=== PATIENT | male | born 1960 | race Caucasian/White ===

== ENCOUNTER 2019-09-02 09:27 | Outpatient (CLI) | payer BC ==
--- NOTE | 2019-09-02 09:44 | RAD ---
XR Chest Pa Lat STANDARD HISTORY: Dysphagia COMPARISON: 02/06/2009 FINDINGS: The heart size is normal. The lungs are well expanded without focal areas of consolidation, pneumothorax or pleural effusions. 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 There are degenerative changes in the spine. IMPRESSION: No radiographic evidence of acute cardiopulmonary process.
== END 2019-09-02 09:28 | disposition home or self-care (01) ==
LOC: RAD-FRANK 09:27
PROVIDERS: ATTEND Nurse Practitioner Family
DX: R13.10 Dysphagia, unspecified (principal)
CPT/HCPCS: 71046

== ENCOUNTER 2019-09-10 10:46 | Outpatient (CLI) | payer BC ==
[2019-09-10 11:17] LABS: Estimated GFR-MDRD - POC Greater than 90
--- NOTE | 2019-09-10 11:53 | CT ---
CT Chest W Con History: Dysphasia. Anorexia. Weakness. Fatigue. Comparison: Radiograph 2019 Findings: Calcified granuloma right upper lobe. Mild centrilobular emphysema. There are scattered 3 t o 4 mm pulmonary nodules. Lungs are hyperinflated. No pneumothorax. No effusion. No significant bronchiectasis. The aortic contour is nonaneurysmal. The ascending aorta measures up to 3.9 cm. No mediastinal adenopathy. Thyroid is unremarkable. Relatively acute-appearing right L2 transverse process fracture. Nondisplaced fracture anterior left seventh rib. No thoracic spine compression fracture. Sternum and manubrium are intact. Impression: 1. Mild pulmonary emphysema and scattered 3-4 mm pulmonary nodules. No follow-up is required per Flei kianna criteria. 2. No acute center process within the chest. 3. Mild distention of the ascending aorta measuring up to 3.9 cm. 4. Relatively acute-appearing right L2 transverse process fracture. 5. 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 6. Nondisplaced fracture left anterior seventh rib.
[2019-09-10] MEDS ORDERED: ISOVUE-370 76%-LOCM 1 ML ONE (12:00)
== END 2019-09-10 10:47 | disposition home or self-care (01) ==
LOC: BICCT 10:46
PROVIDERS: ATTEND Nurse Practitioner Family
DX: R13.10 Dysphagia, unspecified (principal); R63.0 Anorexia; J43.2 Centrilobular emphysema; S32.029A Unspecified fracture of second lumbar vertebra, initial encounter for closed fracture; S22.32XA Fracture of one rib, left side, initial encounter for closed fracture; M48.061 Spinal stenosis, lumbar region without neurogenic claudication; M25.78 Osteophyte, vertebrae; I77.89 Other specified disorders of arteries and arterioles; R91.8 Other nonspecific abnormal finding of lung field
CPT/HCPCS: 71260; 82565; Q9966

== ENCOUNTER 2021-10-08 14:11 | Outpatient (CLI) | payer BC | END 2021-10-08 14:12 | disposition home or self-care (01) | LOC: RAD-FRANK 14:11 | PROVIDERS: ATTEND Nurse Practitioner Family | DX: R05.9 Cough, unspecified (principal) | CPT/HCPCS: 71046 ==

== ENCOUNTER 2021-10-30 10:31 | Inpatient (IN) | payer BC ==
[~2021-10-30 10:31] MED LIST: Iopamidol-370 76% 500 ML 1 ML ONE
[2021-10-30 11:30] LABS: #Eosinphils 0.1 thou/uL (0.0-0.7); #Lymphocytes 1.7 thou/uL (1.20-3.40); #Monocytes 0.8 thou/uL (0.11-0.59); #Neutrophils 9.1 thou/uL (1.40-6.50); %Basophils 0.4 % (0.0-1.0); %Eosinophils 0.4 % (0.0-10.0); %Lymphocytes 14.2 % (21.0-51.0); %Monocytes 6.6 % (0.0-10.0); %Neutrophils 78.3 % (42.0-75.0); Hemoglobin 11.7 g/dL (14.0-18.0); Mean Corpuscular Hemoglobin 31.8 pg (27.0-31.0); Mean Corpuscular Volume 99.3 fL (78.0-98.0); Mean Platelet Volume 6.6 fL (7.4-10.4); Platelet Count 291 thou/uL (130-400); RBC Distribution Width 13.9 % (11.5-14.5); Red Blood Cell (RBC) Count 3.68 mill/uL (4.70-6.10); White Blood Cell (WBC) Count 11.7 thou/uL (4.8-10.8)
[2021-10-30 11:52] LABS: ALT (SGPT) 27 U/L (8-55); AST (SGOT) 33 U/L (5-34); Albumin 2.8 g/dL (3.4-4.8); Alkaline Phosphatase 82 U/L (40-110); Anion Gap 8 mmol/L (10-20); BUN (Urea Nitrogen) 9 mg/dL (8.4-25.7); Bilirubin, Total 0.5 mg/dL (0.2-1.2); Calc. Creatinine Clearance 0 mL/min (70-130); Calcium 8.4 mg/dL (7.8-10.44); Carbon Dioxide 26 mmol/L (23-31); Chloride 91 mmol/L (98-107); Globulin 3.1 g/dL (2.4-3.5); Glucose 95 mg/dL (80-115); Lipase 32 U/L (8-78); Potassium 4.7 mmol/L (3.5-5.1); Protein, Total 5.9 g/dL (5.8-8.1); Sodium 120 mmol/L (136-145)
[2021-10-30 12:14] LABS: CKMB 0.7 ng/mL (0-6.6)
[2021-10-30] MEDS ORDERED: Ondansetron ODT 4 MG TAB SL PRN (14:30)
[2021-10-30] MEDS ORDERED: Ondansetron PF 4 MG/2 ML Vial IVP PRN (14:30)
[2021-10-30] MEDS ORDERED: Acetaminophen 325 MG TAB PO PRN (14:30)
[2021-10-30] MEDS: Sodium Chloride 0.9% 1,000 ML IV SCH (14:58)
[2021-10-30 15:12] LABS: Troponin I Less than 0.010 ng/mL (< 0.028)
[2021-10-30] MEDS ORDERED: Oxymetazoline HCl 0.05% (30 ML BOT) ONE (15:38)
[2021-10-30] MEDS ORDERED: Fentanyl 100 MCG/2 ML VIAL ONE (15:40)
[2021-10-30] MEDS ORDERED: Midazolam HCl 2 mg/2 ml Vial ONE (15:40)
[2021-10-30] MEDS ORDERED: Lidocaine 2% Jelly 5 ML TUBE ONE (16:06)
[2021-10-30] MEDS ORDERED: Rocuronium Bromide 10 MG/ML (10ML VIAL) ONE (16:14)
[2021-10-30] MEDS ORDERED: PROPOFOL 200 MG/20 ML VIAL ONE (16:14)
[2021-10-30] MEDS ORDERED: Phenylephrine 10 MG/ML VIAL ONE (16:14)
[2021-10-30] MEDS ORDERED: Glycopyrrolate 0.2 MG/ML 5 ML SYRINGE ONE (16:14)
[2021-10-30] MEDS ORDERED: EPINEPHrine 1 MG/ML AMP ONE (16:33)
[2021-10-30] MEDS ORDERED: Lidocaine 1% (PF) 30 ML VIAL ONE (16:33)
[2021-10-30] MEDS ORDERED: Ampicillin/Sulbactam 1.5 GM in Sodium Chloride 0.9% 100 ML IVPB SCH (18:30)
[2021-10-30] MEDS ORDERED: Labetalol HCl 100 MG/20 ML VIAL SLOW IVP PRN (18:43)
[2021-10-30] MEDS ORDERED: Fentanyl 100 MCG/2 ML VIAL SLOW IVP SCH (18:45)
[2021-10-30] MEDS: Pantoprazole 40 MG VIAL IVP SCH (20:34)
[2021-10-30 20:36] LABS: Anion Gap 8 mmol/L (10-20); BUN (Urea Nitrogen) 8 mg/dL (8.4-25.7); Calc. Creatinine Clearance 125 mL/min (70-130); Calcium 7.7 mg/dL (7.8-10.44); Carbon Dioxide 22 mmol/L (23-31); Chloride 94 mmol/L (98-107); Glucose 111 mg/dL (80-115); Potassium 4.5 mmol/L (3.5-5.1)
[2021-10-30 20:42] LABS: Sodium 119 mmol/L (136-145)
[2021-10-30 20:43] LABS: Troponin I Less than 0.010 ng/mL (< 0.028)
[2021-10-30 20:58] LABS: SARS-CoV-2 NAA Rapid Test Not Detected (NotDetected)
[2021-10-31] MEDS: Ampicillin/Sulbactam 1.5 GM in Sodium Chloride 0.9% 100 ML IVPB SCH ×4 (00:01→17:18)
[2021-10-31 00:36] LABS: Anion Gap 10 mmol/L (10-20); BUN (Urea Nitrogen) 8 mg/dL (8.4-25.7); Calc. Creatinine Clearance 123 mL/min (70-130); Carbon Dioxide 25 mmol/L (23-31); Chloride 96 mmol/L (98-107); Glucose 99 mg/dL (80-115); Potassium 4.7 mmol/L (3.5-5.1); Sodium 126 mmol/L (136-145)
[2021-10-31 04:25] LABS: #Lymphocytes 1.2 thou/uL (1.20-3.40); #Monocytes 0.8 thou/uL (0.11-0.59); #Neutrophils 9.9 thou/uL (1.40-6.50); %Basophils 0.2 % (0.0-1.0); %Eosinophils 0.3 % (0.0-10.0); %Lymphocytes 10.1 % (21.0-51.0); %Monocytes 6.7 % (0.0-10.0); %Neutrophils 82.7 % (42.0-75.0); Hemoglobin 10.9 g/dL (14.0-18.0); Mean Corpuscular Hemoglobin 34.9 pg (27.0-31.0); Mean Corpuscular Volume 99.7 fL (78.0-98.0); Mean Platelet Volume 6.8 fL (7.4-10.4); Platelet Count 258 thou/uL (130-400); RBC Distribution Width 13.8 % (11.5-14.5); Red Blood Cell (RBC) Count 3.12 mill/uL (4.70-6.10)
[2021-10-31 04:42] LABS: Anion Gap 10 mmol/L (10-20); BUN (Urea Nitrogen) 8 mg/dL (8.4-25.7); Calc. Creatinine Clearance 119 mL/min (70-130); Calcium 8.1 mg/dL (7.8-10.44); Carbon Dioxide 24 mmol/L (23-31); Chloride 97 mmol/L (98-107); Glucose 96 mg/dL (80-115); Sodium 127 mmol/L (136-145)
[2021-10-31] MEDS: Sodium Chloride 0.9% 1,000 ML IV SCH ×3 (05:00→14:41)
[2021-10-31] MEDS: Enoxaparin Sodium 30 MG/0.3 ML SYRINGE SC SCH (07:13)
[2021-10-31] MEDS: Thiamine 100 MG TAB PO SCH (10:13)
[2021-10-31 10:48] LABS: SARS-CoV-2 PCR by NAA Not Detected (NotDetected)
[2021-10-31] MEDS: Pantoprazole 40 MG VIAL IVP SCH (21:15)
[2021-10-31] MEDS: Morphine 4 MG/ML VIAL SLOW IVP PRN (21:36)
[2021-11-01] MEDS: Ampicillin/Sulbactam 1.5 GM in Sodium Chloride 0.9% 100 ML IVPB SCH ×4 (00:16→20:00)
[2021-11-01 07:23] LABS: #Eosinphils 0.1 thou/uL (0.0-0.7); #Lymphocytes 1.4 thou/uL (1.20-3.40); #Monocytes 0.5 thou/uL (0.11-0.59); #Neutrophils 5.3 thou/uL (1.40-6.50); %Basophils 0.1 % (0.0-1.0); %Eosinophils 1.2 % (0.0-10.0); %Lymphocytes 18.5 % (21.0-51.0); %Monocytes 7.2 % (0.0-10.0); Hemoglobin 10.1 g/dL (14.0-18.0); Mean Corpuscular HGB CONC 31.9 g/dL (32.0-36.0); Mean Corpuscular Hemoglobin 32.3 pg (27.0-31.0); Mean Platelet Volume 6.5 fL (7.4-10.4); Platelet Count 315 thou/uL (130-400); RBC Distribution Width 13.8 % (11.5-14.5); Red Blood Cell (RBC) Count 3.13 mill/uL (4.70-6.10); White Blood Cell (WBC) Count 7.3 thou/uL (4.8-10.8)
[2021-11-01 07:32] LABS: Anion Gap 12 mmol/L (10-20); BUN (Urea Nitrogen) 7 mg/dL (8.4-25.7); Calc. Creatinine Clearance 131 mL/min (70-130); Calcium 7.9 mg/dL (7.8-10.44); Carbon Dioxide 23 mmol/L (23-31); Chloride 102 mmol/L (98-107); Glucose 72 mg/dL (80-115); Potassium 3.5 mmol/L (3.5-5.1); Sodium 133 mmol/L (136-145)
[2021-11-01] MEDS: Thiamine 100 MG TAB PO SCH (08:21)
[2021-11-01] MEDS: Sodium Chloride 0.9% 1,000 ML IV SCH ×2 (09:31→23:25)
[2021-11-01] MEDS ORDERED: Ondansetron PF 4 MG/2 ML Vial ONE (12:00)
[2021-11-01] MEDS ORDERED: Metoclopramide HCl 10 MG/2 ML VIAL ONE (12:00)
[2021-11-01] MEDS ORDERED: PROPOFOL 200 MG/20 ML VIAL ONE (12:00)
[2021-11-01] MEDS ORDERED: Fentanyl 100 MCG/2 ML VIAL ONE (12:12)
[2021-11-01] MEDS ORDERED: Promethazine HCl 25 MG/ML VIAL IVPB PRN (13:05)
[2021-11-01] MEDS ORDERED: Ondansetron HCl/PF 4 MG/2 ML Vial IVP PRN (13:05)
[2021-11-01] MEDS ORDERED: Promethazine HCl 25 MG/ML VIAL IM PRN (13:05)
[2021-11-01] MEDS: Morphine 4 MG/ML VIAL SLOW IVP PRN ×2 (18:36→22:23)
[2021-11-01] MEDS: Pantoprazole 40 MG VIAL IVP SCH (20:01)
[2021-11-01] MEDS ORDERED: Dextrose 50% Abboject 50 ML SYRINGE ONE (20:45)
[2021-11-01] MEDS ORDERED: Dextrose 50% Abboject 50 ML SYRINGE SLOW IVP PRN (21:58)
[2021-11-01] MEDS ORDERED: Dextrose 5% in Water 1,000 ML IV PRN (21:58)
[2021-11-01] MEDS: Dextrose 5% in Water 1,000 ML IV SCH (22:15)
[2021-11-02] MEDS: Ampicillin/Sulbactam 1.5 GM in Sodium Chloride 0.9% 100 ML IVPB SCH ×3 (00:21→12:52)
[2021-11-02] MEDS: Morphine 4 MG/ML VIAL SLOW IVP PRN ×3 (06:48→21:26)
[2021-11-02 06:53] LABS: #Eosinphils 0.1 thou/uL (0.0-0.7); #Lymphocytes 1.3 thou/uL (1.20-3.40); #Monocytes 0.5 thou/uL (0.11-0.59); %Basophils 0.7 % (0.0-1.0); %Lymphocytes 18.7 % (21.0-51.0); %Monocytes 7.1 % (0.0-10.0); %Neutrophils 71.5 % (42.0-75.0); Hemoglobin 10.3 g/dL (14.0-18.0); Mean Corpuscular HGB CONC 33.6 g/dL (32.0-36.0); Mean Corpuscular Hemoglobin 33.9 pg (27.0-31.0); Platelet Count 329 thou/uL (130-400); RBC Distribution Width 13.9 % (11.5-14.5); Red Blood Cell (RBC) Count 3.04 mill/uL (4.70-6.10); White Blood Cell (WBC) Count 6.9 thou/uL (4.8-10.8)
[2021-11-02 07:13] LABS: Anion Gap 9 mmol/L (10-20); BUN (Urea Nitrogen) 7 mg/dL (8.4-25.7); Calc. Creatinine Clearance 120 mL/min (70-130); Carbon Dioxide 27 mmol/L (23-31); Chloride 104 mmol/L (98-107); Glucose 87 mg/dL (80-115); Potassium 3.5 mmol/L (3.5-5.1); Sodium 136 mmol/L (136-145)
[2021-11-02] MEDS: Thiamine 100 MG TAB PO SCH (09:25)
[2021-11-02] MEDS: Enoxaparin Sodium 30 MG/0.3 ML SYRINGE SC SCH (09:25)
[2021-11-02] MEDS: Dextrose 5% in Water 1,000 ML IV SCH (12:52)
[2021-11-02] MEDS: Pantoprazole 40 MG VIAL IVP SCH (20:09)
[2021-11-02] MEDS: Amoxicillin/Potassium Clav 875 MG TAB PO SCH (20:09)
[2021-11-03] MEDS: Morphine 4 MG/ML VIAL SLOW IVP PRN ×4 (06:05→21:55)
[2021-11-03 06:40] LABS: Thyroid Stimulating Hormone 1.3221 uIU/mL (0.35-4.94)
[2021-11-03] MEDS: Amoxicillin/Potassium Clav 875 MG TAB PO SCH ×2 (08:53→21:15)
[2021-11-03] MEDS: Thiamine 100 MG TAB PO SCH (08:53)
[2021-11-03] MEDS: Enoxaparin Sodium 30 MG/0.3 ML SYRINGE SC SCH (08:53)
[2021-11-03] MEDS ORDERED: Folic Acid 1 MG TAB PO SCH (10:00)
[2021-11-03] MEDS: Sodium Chloride 0.9% 1,000 ML IV SCH (10:58)
[2021-11-03] MEDS: Pantoprazole 40 MG VIAL IVP SCH (21:16)
[2021-11-04] MEDS: Morphine 4 MG/ML VIAL SLOW IVP PRN ×3 (02:38→21:15)
[2021-11-04] MEDS: Folic Acid 1 MG TAB PO SCH (08:34)
[2021-11-04] MEDS: Thiamine 100 MG TAB PO SCH (08:34)
[2021-11-04] MEDS: Enoxaparin Sodium 30 MG/0.3 ML SYRINGE SC SCH (08:34)
[2021-11-04] MEDS: Amoxicillin/Potassium Clav 875 MG TAB PO SCH ×2 (08:34→21:15)
[2021-11-04] MEDS ORDERED: Cephalexin 250 MG/5 ML Oral Suspension PO SCH (21:00)
[2021-11-04] MEDS: Pantoprazole 40 MG VIAL IVP SCH (21:15)
[2021-11-05] MEDS: Enoxaparin Sodium 30 MG/0.3 ML SYRINGE SC SCH (09:59)
[2021-11-05] MEDS: Thiamine 100 MG TAB PO SCH (10:00)
[2021-11-05] MEDS: Morphine 4 MG/ML VIAL SLOW IVP PRN (10:00)
[2021-11-05] MEDS: Amoxicillin/Potassium Clav 875 MG TAB PO SCH ×2 (10:00→20:42)
[2021-11-05] MEDS: Folic Acid 1 MG TAB PO SCH (10:00)
[2021-11-05 14:35] VITALS: BMI 17.6
[2021-11-05] MEDS: HYDROcodone/Acetaminophen 7.5/325 mg Tablet PO PRN ×2 (15:50→21:09)
[2021-11-05] MEDS: Pantoprazole 40 MG VIAL IVP SCH (20:42)
[2021-11-06] MEDS: Folic Acid 1 MG TAB PO SCH (08:10)
[2021-11-06] MEDS: HYDROcodone/Acetaminophen 7.5/325 mg Tablet PO PRN (08:10)
[2021-11-06] MEDS: Thiamine 100 MG TAB PO SCH (08:10)
[2021-11-06] MEDS: Enoxaparin Sodium 30 MG/0.3 ML SYRINGE SC SCH ×2 (08:14→14:11)
[2021-11-06] MEDS: Amoxicillin/Potassium Clav 875 MG TAB PO SCH (10:00)
[2021-11-06] MEDS ORDERED: Fentanyl 100 MCG/2 ML VIAL ONE (14:43)
[2021-11-06] MEDS ORDERED: Bupivacaine PF 0.5% 30 ML VIAL ONE (14:49)
[2021-11-06] MEDS ORDERED: EPINEPHrine 1 MG/ML AMP ONE (14:49)
[2021-11-06] MEDS ORDERED: Lidocaine 0.5%/Epinephrine 1:200,000 50 ml Vial ONE (14:49)
[2021-11-06] MEDS ORDERED: Sodium Chloride 0.9% 20 ML ONE (14:53)
[2021-11-06] MEDS ORDERED: Dexamethasone 20 MG/5 ML VIAL ONE (15:29)
[2021-11-06] MEDS ORDERED: Ondansetron PF 4 MG/2 ML Vial ONE (15:29)
[2021-11-06] MEDS ORDERED: Promethazine HCl 25 MG/ML VIAL IVPB PRN (16:15)
[2021-11-06] MEDS ORDERED: Promethazine HCl 25 MG/ML VIAL IM PRN (16:15)
[2021-11-06] MEDS ORDERED: Ondansetron HCl/PF 4 MG/2 ML Vial IVP PRN (16:15)
[2021-11-06] MEDS ORDERED: Labetalol HCl 100 MG/20 ML VIAL ONE (16:35)
[2021-11-06 19:26] VITALS: BP 166/81; TEMP 98
== END 2021-11-06 19:30 | disposition home or self-care (01) | DRG 11 ==
LOC: ERS 10:31 → 2NO 13:18 → CCU 16:06 → SURG A 11-01 10:21
PROVIDERS: ADMIT Internal Medicine; ATTEND Internal Medicine
PROC: 0B110F4 Bypass Trachea to Cutaneous with Tracheostomy Device, Open Approach (ICD-10-PCS; principal; 2021-10-30)
PROC: 0BH18EZ Insertion of Endotracheal Airway into Trachea, Via Natural or Artificial Opening Endoscopic (ICD-10-PCS; 2021-10-30)
PROC: 0CBS8ZX Excision of Larynx, Via Natural or Artificial Opening Endoscopic, Diagnostic (ICD-10-PCS; 2021-10-30)
PROC: 0CB Mouth and Throat, Excision (ICD-10-PCS; 2021-10-30)
PROC: 5A1935Z Respiratory Ventilation, Less than 24 Consecutive Hours (ICD-10-PCS; 2021-10-30)
PROC: 0DH63UZ Insertion of Feeding Device into Stomach, Percutaneous Approach (ICD-10-PCS; 2021-11-01)
PROC: 0JH60WZ Insertion of Totally Implantable Vascular Access Device into Chest Subcutaneous Tissue and Fascia, Open Approach (ICD-10-PCS; 2021-11-06)
PROC: 02HV33Z Insertion of Infusion Device into Superior Vena Cava, Percutaneous Approach (ICD-10-PCS; 2021-11-06)
PROC: B5181ZA Fluoroscopy of Superior Vena Cava using Low Osmolar Contrast, Guidance (ICD-10-PCS; 2021-11-06)
DX: C01 Malignant neoplasm of base of tongue (principal); E43 Unspecified severe protein-calorie malnutrition; E87.1 Hypo-osmolality and hyponatremia; R64 Cachexia; Z68.1 Body mass index [BMI] 19.9 or less, adult; C78.02 Secondary malignant neoplasm of left lung; C78.01 Secondary malignant neoplasm of right lung; T80.1XXA Vascular complications following infusion, transfusion and therapeutic injection, initial encounter; Z20.822 Contact with and (suspected) exposure to COVID-19; C32.9 Malignant neoplasm of larynx, unspecified; E78.00 Pure hypercholesterolemia, unspecified; F32.A Depression, unspecified; R77.8 Other specified abnormalities of plasma proteins; J44.9 Chronic obstructive pulmonary disease, unspecified; F17.210 Nicotine dependence, cigarettes, uncomplicated; E86.1 Hypovolemia; K22.89 Other specified disease of esophagus; E86.0 Dehydration; D53.9 Nutritional anemia, unspecified; E78.5 Hyperlipidemia, unspecified; R13.12 Dysphagia, oropharyngeal phase; D52.9 Folate deficiency anemia, unspecified; J98.8 Other specified respiratory disorders; D72.829 Elevated white blood cell count, unspecified; I80.8 Phlebitis and thrombophlebitis of other sites; Y84.8 Other medical procedures as the cause of abnormal reaction of the patient, or of later complication, without mention of misadventure at the time of the procedure; Z79.899 Other long term (current) drug therapy; Z85.828 Personal history of other malignant neoplasm of skin; Z82.49 Family history of ischemic heart disease and other diseases of the circulatory system; Z71.6 Tobacco abuse counseling
CPT/HCPCS: 36415; 36416; 70450; 70491; 71045; 71275; 80048; 80053; 82553; 82607; 82746; 83690; 83930; 83935; 84300; 84443; 84484; 85025; 88305; 88342; 93005; 94002; 94640; C1788; C9113; J0171; J0295; J1100; J1642; J1650; J2001; J2250; J2270; J2370; J2405; J2704; J2765; J3010; J3490; J7050; J7070; Q9967; S0020; U0002; U0003; U0005

== ENCOUNTER 2021-11-23 08:16 | Outpatient (CLI) | payer BC | END 2021-11-23 08:17 | disposition home or self-care (01) | LOC: PET 08:16 | PROVIDERS: ATTEND Internal Medicine Hematology & Oncology | DX: C32.1 Malignant neoplasm of supraglottis (principal); C01 Malignant neoplasm of base of tongue; C96.9 Malignant neoplasm of lymphoid, hematopoietic and related tissue, unspecified; C78.02 Secondary malignant neoplasm of left lung; C78.01 Secondary malignant neoplasm of right lung | CPT/HCPCS: 78815; A9552 ==

== ENCOUNTER 2022-03-05 08:47 | Day surgery (SDC) | payer BC ==
[2022-03-04 07:34] VITALS: BMI 20.6
[2022-03-05 09:07] LABS: #Eosinphils 0.2 thou/uL (0.0-0.7); #Monocytes 1.3 thou/uL (0.11-0.59); #Neutrophils 9.5 thou/uL (1.40-6.50); %Basophils 0.3 % (0.0-1.0); %Eosinophils 1.2 % (0.0-10.0); %Lymphocytes 21.5 % (21.0-51.0); Hemoglobin 11.5 g/dL (14.0-18.0); Mean Corpuscular HGB CONC 31.1 g/dL (32.0-36.0); Mean Corpuscular Hemoglobin 27.6 pg (27.0-31.0); Mean Corpuscular Volume 88.8 fL (78.0-98.0); Mean Platelet Volume 6.6 fL (7.4-10.4); Platelet Count 310 thou/uL (130-400); RBC Distribution Width 14.7 % (11.5-14.5); Red Blood Cell (RBC) Count 4.15 mill/uL (4.70-6.10); White Blood Cell (WBC) Count 13.9 thou/uL (4.8-10.8)
[2022-03-05 09:20] LABS: PTT 34.9 sec (22.9-36.1); Prothrombin Time 13.4 sec (12.0-14.7)
[2022-03-05] MEDS ORDERED: Midazolam HCl 2 mg/2 ml Vial ONE (09:24)
[2022-03-05] MEDS ORDERED: Fentanyl 100 MCG/2 ML VIAL ONE (09:24)
[2022-03-05] MEDS ORDERED: Sodium Bicarbonate 2.5 MEQ/5 ML VIAL ONE (09:25)
[2022-03-05] MEDS ORDERED: Lidocaine 1% PF 5 ML VIAL ONE (09:25)
== END 2022-03-05 13:22 | disposition home or self-care (01) ==
LOC: CT 08:47
PROVIDERS: ATTEND Internal Medicine Hematology & Oncology
PROC: 0BBF3ZX Excision of Right Lower Lung Lobe, Percutaneous Approach, Diagnostic (ICD-10-PCS; principal; 2022-03-05)
DX: C32.1 Malignant neoplasm of supraglottis (principal); C78.01 Secondary malignant neoplasm of right lung; J93.9 Pneumothorax, unspecified; M19.90 Unspecified osteoarthritis, unspecified site; J44.9 Chronic obstructive pulmonary disease, unspecified; I10 Essential (primary) hypertension; K21.9 Gastro-esophageal reflux disease without esophagitis; E78.00 Pure hypercholesterolemia, unspecified; F10.11 Alcohol abuse, in remission; Z87.891 Personal history of nicotine dependence; Z79.899 Other long term (current) drug therapy; Z93.0 Tracheostomy status
CPT/HCPCS: 32408; 71045; 77002; 85025; 85610; 85730; 88305; 88333; 88334; 88341; 88342; J1642; J2250; J3010

== ENCOUNTER 2022-03-19 13:05 | Emergency (ER) | payer BC ==
[2022-03-19] MEDS ORDERED: traMADol HCl 50 MG TAB ONE (14:28)
[2022-03-19] MEDS ORDERED: Morphine 4 MG/ML VIAL ONE (14:42)
[2022-03-19 15:49] LABS: Hemoglobin 9.8 g/dL (14.0-18.0); Mean Corpuscular HGB CONC 31.1 g/dL (32.0-36.0); Mean Corpuscular Hemoglobin 27.9 pg (27.0-31.0); Mean Corpuscular Volume 89.8 fL (78.0-98.0); Platelet Count 239 thou/uL (130-400); RBC Distribution Width 14.5 % (11.5-14.5); White Blood Cell (WBC) Count 16.9 thou/uL (4.8-10.8)
[2022-03-19 16:05] LABS: MDiff Complete? YES
[2022-03-19 16:06] LABS: Band 12 % (5-11); Hypochromia SLIGHT = 6-15 cells (100X) (0-5/hpf); Lymphocytes 4 % (21-51); Monocytes 1 % (0-10); Neutrophil 80 % (42-75); Platelet Morphology Comment Appears Adequate; Polychromasia SLIGHT = 2-3 cells (100X) (0-2/hpf); Reactive Lymphocytes 3 % (0-10)
[2022-03-19 16:10] LABS: ALT (SGPT) 30 U/L (8-55); AST (SGOT) 15 U/L (5-34); Albumin 3.4 g/dL (3.4-4.8); Alkaline Phosphatase 97 U/L (40-110); Anion Gap 11 mmol/L (10-20); BUN (Urea Nitrogen) 30 mg/dL (8.4-25.7); Bilirubin, Total 0.3 mg/dL (0.2-1.2); Calc. Creatinine Clearance 0 mL/min (70-130); Calcium 8.7 mg/dL (7.8-10.44); Carbon Dioxide 29 mmol/L (23-31); Chloride 96 mmol/L (98-107); Globulin 2.8 g/dL (2.4-3.5); Glucose 94 mg/dL (80-115); Potassium 4.1 mmol/L (3.5-5.1); Protein, Total 6.2 g/dL (5.8-8.1); Sodium 132 mmol/L (136-145)
== END 2022-03-19 17:03 | disposition home or self-care (01) ==
LOC: ERS 13:05
DX: L03.221 Cellulitis of neck (principal); Z87.891 Personal history of nicotine dependence
CPT/HCPCS: 36415; 70491; 80053; 85025; 94760; 96374; J2270

== ENCOUNTER 2022-06-04 11:45 | Outpatient (CLI) | payer BC, OTHER | END 2022-06-04 11:46 | disposition home or self-care (01) | LOC: PET 11:45 | PROVIDERS: ATTEND Internal Medicine Hematology & Oncology | DX: C32.1 Malignant neoplasm of supraglottis (principal); C78.01 Secondary malignant neoplasm of right lung; C78.02 Secondary malignant neoplasm of left lung; C79.89 Secondary malignant neoplasm of other specified sites; C77.0 Secondary and unspecified malignant neoplasm of lymph nodes of head, face and neck | CPT/HCPCS: 78815; A9552 ==

== ENCOUNTER 2022-09-13 10:15 | Outpatient (CLI) | payer OTHER | END 2022-09-13 10:16 | disposition home or self-care (01) | LOC: PET 10:15 | PROVIDERS: ATTEND Internal Medicine Hematology & Oncology | DX: C32.9 Malignant neoplasm of larynx, unspecified (principal) | CPT/HCPCS: 78815; A9552 ==

== ENCOUNTER 2022-10-20 11:03 | Inpatient (IN) | payer OTHER ==
[2022-10-20] MEDS ORDERED: Morphine 4 MG/ML VIAL ONE (11:27)
[2022-10-20 11:58] LABS: #Lymphocytes 1.2 thou/uL (1.20-3.40); #Monocytes 0.8 thou/uL (0.11-0.59); #Neutrophils 14.7 thou/uL (1.40-6.50); %Basophils 0.1 % (0.0-1.0); %Eosinophils 0.2 % (0.0-10.0); %Lymphocytes 7.4 % (21.0-51.0); %Monocytes 4.5 % (0.0-10.0); %Neutrophils 87.8 % (42.0-75.0); Hemoglobin 12.7 g/dL (14.0-18.0); Mean Corpuscular HGB CONC 33.6 g/dL (32.0-36.0); Mean Corpuscular Hemoglobin 30.9 pg (27.0-31.0); Mean Platelet Volume 8.1 fL (7.4-10.4); Platelet Count 452 10x3/uL (130-400); White Blood Cell (WBC) Count 16.7 10x3/uL (4.8-10.8)
[2022-10-20 12:04] LABS: Bilirubin Negative (Negative); Blood, Urine Negative (Negative); Clarity Clear (Clear); Glucose, Urine (Dipstick) Normal (Negative); Ketone, Urine 20 mg/dL (Negative); Leukocyte Negative Leu/uL (Negative); Nitrite Negative (Negative); Protein, Urine (Dipstick) 20 mg/dL (Neg-Trace); Urobilinogen 3 mg/dL (Less than 2); pH, Urine 6.5 (5.0-9.0)
[2022-10-20 12:27] LABS: ALT (SGPT) 10 U/L (8-55); AST (SGOT) 18 U/L (5-34); Albumin 3.8 g/dL (3.4-4.8); Alkaline Phosphatase 103 U/L (40-110); Anion Gap 18 mmol/L (10-20); BUN (Urea Nitrogen) 22 mg/dL (8.4-25.7); Bilirubin, Total 0.5 mg/dL (0.2-1.2); Calc. Creatinine Clearance 0 mL/min (70-130); Calcium 9.9 mg/dL (7.8-10.44); Carbon Dioxide 27 mmol/L (23-31); Chloride 99 mmol/L (98-107); Estimated GFR 101; Globulin 3.2 g/dL (2.4-3.5); Glucose 152 mg/dL (80-115); Lipase Less than 4 U/L (8-78); Potassium 3.7 mmol/L (3.5-5.1); Sodium 140 mmol/L (136-145)
[2022-10-20] MEDS ORDERED: Aspirin 325 MG TAB ONE (14:42)
[2022-10-20] MEDS ORDERED: Aspirin Chewable 81 MG TAB ONE (14:42)
[2022-10-20 14:51] LABS: Lactic Acid 1.4 mmol/L (0.5-2.2)
[2022-10-20] MEDS ORDERED: Metoclopramide HCl 10 MG/2 ML VIAL IVP PRN (14:58)
[2022-10-20] MEDS ORDERED: Morphine 4 MG/ML VIAL SLOW IVP PRN (14:59)
[2022-10-20] MEDS ORDERED: Acetaminophen 325 MG TAB PO PRN (15:13)
[2022-10-20] MEDS ORDERED: Acetaminophen 650 MG Suppository PR PRN (15:13)
[2022-10-20 15:43] LABS: Troponin I 0.815 ng/mL (< 0.028)
[2022-10-20 16:38] LABS: Magnesium 1.9 mg/dL (1.6-2.6)
[2022-10-20 18:33] LABS: Critical Call Chem Troponin I RESULT DECREASING; Troponin I 0.768 ng/mL (< 0.028)
[2022-10-20 20:17] LABS: SARS-CoV-2 NAA Rapid Test Not Detected (NotDetected)
[2022-10-20] MEDS ORDERED: Metoprolol Tartrate 25 MG TAB PO SCH (21:00)
[2022-10-20] MEDS ORDERED: Metoprolol Tartrate 25 MG TAB PER TUBE SCH (22:00)
[2022-10-20] MEDS ORDERED: Acetaminophen 325 MG TAB PER TUBE PRN (22:00)
[2022-10-20] MEDS: Nitroglycerin 2% Ointment 1 INCH/1 GM Packet TOP SCH (22:46)
[2022-10-20] MEDS: Sodium Chloride 0.9% 1,000 ML IV SCH (22:49)
[2022-10-21 05:15] LABS: #Eosinphils 0.1 thou/uL (0.0-0.7); #Lymphocytes 1.9 thou/uL (1.20-3.40); #Monocytes 1.1 thou/uL (0.11-0.59); #Neutrophils 11.5 thou/uL (1.40-6.50); %Basophils 0.1 % (0.0-1.0); %Eosinophils 0.4 % (0.0-10.0); %Monocytes 7.4 % (0.0-10.0); %Neutrophils 79.1 % (42.0-75.0); Hemoglobin 10.6 g/dL (14.0-18.0); Mean Corpuscular HGB CONC 31.4 g/dL (32.0-36.0); Mean Corpuscular Hemoglobin 29.3 pg (27.0-31.0); Mean Corpuscular Volume 93.2 fl (78.0-98.0); Mean Platelet Volume 8.4 fL (7.4-10.4); Platelet Count 372 10x3/uL (130-400); Red Blood Cell (RBC) Count 3.62 mill/uL (4.70-6.10); White Blood Cell (WBC) Count 14.5 10x3/uL (4.8-10.8)
[2022-10-21 05:32] LABS: Anion Gap 12 mmol/L (10-20); BUN (Urea Nitrogen) 19 mg/dL (8.4-25.7); Calc. Creatinine Clearance 92 mL/min (70-130); Calcium 9.1 mg/dL (7.8-10.44); Carbon Dioxide 27 mmol/L (23-31); Cardiac Risk 4.3 (Less than 4.5); Chloride 105 mmol/L (98-107); Cholesterol 149 mg/dl (< 200 Desired); Estimated GFR 105; Glucose 114 mg/dL (80-115); HDL Cholesterol 35 mg/dL (>60 Neg Risk); LDL Cholesterol, Calculated 99 mg/dL; Potassium 3.7 mmol/L (3.5-5.1); Sodium 140 mmol/L (136-145); Triglycerides 73 mg/dL (Less than 150)
[2022-10-21] MEDS: Metoprolol Tartrate 25 MG TAB PER TUBE SCH ×2 (09:25→20:17)
[2022-10-21] MEDS: Aspirin Chewable 81 MG TAB PER TUBE SCH (09:25)
[2022-10-21] MEDS: Sodium Chloride 0.9% 1,000 ML IV SCH (09:25)
[2022-10-21] MEDS: Nitroglycerin 2% Ointment 1 INCH/1 GM Packet TOP SCH ×2 (09:26→20:17)
[2022-10-21] MEDS: Pantoprazole 40 MG VIAL IVP SCH (09:26)
[2022-10-21] MEDS: Atorvastatin Calcium 20 MG TAB PO SCH (20:17)
[2022-10-21] MEDS ORDERED: Scopolamine 1.5 mg/72 hour Patch TD PRN (20:38)
[2022-10-21] MEDS: traMADol HCl 50 MG TAB PO PRN (21:56)
[2022-10-21] MEDS: Cephalexin 250 MG CAP PO SCH (21:58)
[2022-10-22 04:52] LABS: #Basophils 0.1 thou/uL (0.0-0.2); #Eosinphils 0.1 thou/uL (0.0-0.7); #Lymphocytes 2.4 thou/uL (1.20-3.40); #Monocytes 0.8 thou/uL (0.11-0.59); #Neutrophils 8.3 thou/uL (1.40-6.50); %Basophils 0.5 % (0.0-1.0); %Eosinophils 1.2 % (0.0-10.0); %Lymphocytes 20.2 % (21.0-51.0); %Monocytes 6.8 % (0.0-10.0); %Neutrophils 71.3 % (42.0-75.0); Hemoglobin 8.8 g/dL (14.0-18.0); Mean Corpuscular HGB CONC 33.1 g/dL (32.0-36.0); Mean Corpuscular Hemoglobin 30.6 pg (27.0-31.0); Mean Corpuscular Volume 92.4 fl (78.0-98.0); Mean Platelet Volume 7.7 fL (7.4-10.4); Platelet Count 304 10x3/uL (130-400); RBC Distribution Width 12.9 % (11.5-14.5); Red Blood Cell (RBC) Count 2.86 mill/uL (4.70-6.10); White Blood Cell (WBC) Count 11.7 10x3/uL (4.8-10.8)
[2022-10-22] MEDS: Cephalexin 250 MG CAP PO SCH ×3 (05:06→22:03)
[2022-10-22] MEDS: traMADol HCl 50 MG TAB PO PRN ×3 (05:07→22:03)
[2022-10-22 05:15] LABS: Anion Gap 11 mmol/L (10-20); BUN (Urea Nitrogen) 15 mg/dL (8.4-25.7); Calc. Creatinine Clearance 103 mL/min (70-130); Carbon Dioxide 24 mmol/L (23-31); Chloride 106 mmol/L (98-107); Estimated GFR 109; Glucose 93 mg/dL (80-115); Magnesium 1.6 mg/dL (1.6-2.6); Potassium 2.8 mmol/L (3.5-5.1); Sodium 138 mmol/L (136-145)
[2022-10-22] MEDS: Pantoprazole 40 MG VIAL IVP SCH (09:32)
[2022-10-22] MEDS: Nitroglycerin 2% Ointment 1 INCH/1 GM Packet TOP SCH (09:32)
[2022-10-22] MEDS: Metoprolol Tartrate 25 MG TAB PER TUBE SCH ×2 (09:32→22:04)
[2022-10-22] MEDS: Aspirin Chewable 81 MG TAB PER TUBE SCH (09:32)
[2022-10-22 15:58] VITALS: BMI 16.7
[2022-10-22 18:16] LABS: Potassium 3.3 mmol/L (3.5-5.1)
[2022-10-22] MEDS: Atorvastatin Calcium 20 MG TAB PO SCH (22:03)
[2022-10-23 04:55] LABS: #Eosinphils 0.3 thou/uL (0.0-0.7); #Lymphocytes 2.2 thou/uL (1.20-3.40); #Monocytes 0.8 thou/uL (0.11-0.59); #Neutrophils 6.7 thou/uL (1.40-6.50); %Basophils 0.4 % (0.0-1.0); %Eosinophils 2.5 % (0.0-10.0); %Lymphocytes 21.8 % (21.0-51.0); %Monocytes 8.1 % (0.0-10.0); %Neutrophils 67.2 % (42.0-75.0); Hemoglobin 8.9 g/dL (14.0-18.0); Mean Corpuscular HGB CONC 31.4 g/dL (32.0-36.0); Mean Corpuscular Hemoglobin 29.5 pg (27.0-31.0); Mean Corpuscular Volume 93.9 fl (78.0-98.0); Platelet Count 329 10x3/uL (130-400); Red Blood Cell (RBC) Count 3.02 mill/uL (4.70-6.10); White Blood Cell (WBC) Count 9.9 10x3/uL (4.8-10.8)
[2022-10-23 05:16] LABS: Anion Gap 9 mmol/L (10-20); BUN (Urea Nitrogen) 16 mg/dL (8.4-25.7); Calc. Creatinine Clearance 120 mL/min (70-130); Calcium 7.9 mg/dL (7.8-10.44); Carbon Dioxide 25 mmol/L (23-31); Chloride 103 mmol/L (98-107); Estimated GFR 111; Glucose 93 mg/dL (80-115); Sodium 134 mmol/L (136-145)
[2022-10-23] MEDS: Cephalexin 250 MG CAP PO SCH ×2 (06:12→12:32)
[2022-10-23] MEDS: traMADol HCl 50 MG TAB PO PRN ×2 (06:15→12:32)
[2022-10-23] MEDS ORDERED: Clopidogrel Bisulfate 75 MG TAB PO SCH (09:00)
[2022-10-23] MEDS: Aspirin Chewable 81 MG TAB PER TUBE SCH (09:21)
[2022-10-23] MEDS: Pantoprazole 40 MG VIAL IVP SCH (09:21)
[2022-10-23] MEDS: Metoprolol Tartrate 25 MG TAB PER TUBE SCH (09:22)
[2022-10-23 10:13] VITALS: BP 94/50; TEMP 98.1
[2022-10-23] MEDS ORDERED: Potassium Chloride 20 MEQ TAB PO SCH (12:15)
== END 2022-10-23 14:39 | disposition home or self-care (01) | DRG 280 ==
LOC: ERS 11:03 → 2NO 14:35
PROVIDERS: ADMIT Internal Medicine; ATTEND Hospitalist
DX: I21.4 Non-ST elevation (NSTEMI) myocardial infarction (principal); E43 Unspecified severe protein-calorie malnutrition; C78.00 Secondary malignant neoplasm of unspecified lung; E87.1 Hypo-osmolality and hyponatremia; R64 Cachexia; J96.10 Chronic respiratory failure, unspecified whether with hypoxia or hypercapnia; Z68.1 Body mass index [BMI] 19.9 or less, adult; E86.0 Dehydration; R13.10 Dysphagia, unspecified; E87.6 Hypokalemia; K21.9 Gastro-esophageal reflux disease without esophagitis; J44.9 Chronic obstructive pulmonary disease, unspecified; F41.9 Anxiety disorder, unspecified; C76.0 Malignant neoplasm of head, face and neck; Z20.822 Contact with and (suspected) exposure to COVID-19; F32.A Depression, unspecified; Z93.0 Tracheostomy status; Z79.899 Other long term (current) drug therapy; Z79.82 Long term (current) use of aspirin; Z79.02 Long term (current) use of antithrombotics/antiplatelets; Z87.891 Personal history of nicotine dependence; Z93.1 Gastrostomy status
CPT/HCPCS: 36415; 71045; 74177; 80048; 80053; 80061; 81003; 82553; 83605; 83690; 83735; 84100; 84484; 85025; 87040; 93005; 93306; 93798; 94640; 96374; 97139; C9113; J2270; J2765; J7050; J7620; Q9967

== ENCOUNTER 2022-10-26 04:00 | Emergency (ER) | payer OTHER ==
[2022-10-26 04:52] LABS: #Eosinphils 0.1 thou/uL (0.0-0.7); #Lymphocytes 1.1 thou/uL (1.20-3.40); #Monocytes 0.8 thou/uL (0.11-0.59); #Neutrophils 7.9 thou/uL (1.40-6.50); %Basophils 0.4 % (0.0-1.0); %Eosinophils 0.8 % (0.0-10.0); %Lymphocytes 10.7 % (21.0-51.0); %Monocytes 8.4 % (0.0-10.0); %Neutrophils 79.7 % (42.0-75.0); Hemoglobin 9.3 g/dL (14.0-18.0); Mean Corpuscular HGB CONC 32.6 g/dL (32.0-36.0); Mean Corpuscular Hemoglobin 30.3 pg (27.0-31.0); Mean Platelet Volume 7.5 fL (7.4-10.4); Platelet Count 349 10x3/uL (130-400); RBC Distribution Width 13.1 % (11.5-14.5); Red Blood Cell (RBC) Count 3.07 mill/uL (4.70-6.10); White Blood Cell (WBC) Count 9.9 10x3/uL (4.8-10.8)
[2022-10-26 05:55] LABS: ALT (SGPT) 12 U/L (8-55); AST (SGOT) 13 U/L (5-34); Albumin 3.1 g/dL (3.4-4.8); Alkaline Phosphatase 72 U/L (40-110); Anion Gap 14 mmol/L (10-20); BUN (Urea Nitrogen) 14 mg/dL (8.4-25.7); Calc. Creatinine Clearance 0 mL/min (70-130); Calcium 8.8 mg/dL (7.8-10.44); Carbon Dioxide 25 mmol/L (23-31); Chloride 100 mmol/L (98-107); Estimated GFR 107; Globulin 3.1 g/dL (2.4-3.5); Glucose 105 mg/dL (80-115); Potassium 3.6 mmol/L (3.5-5.1); Protein, Total 6.2 g/dL (5.8-8.1); Sodium 135 mmol/L (136-145)
[2022-10-26 06:06] LABS: Bilirubin, Total 0.4 mg/dL (0.2-1.2)
== END 2022-10-26 11:19 | disposition home or self-care (01) ==
LOC: ERS 04:00
DX: J18.9 Pneumonia, unspecified organism (principal); Z87.891 Personal history of nicotine dependence
CPT/HCPCS: 36415; 71045; 80053; 84484; 85025; 93005

== ENCOUNTER 2022-11-01 16:05 | Inpatient (IN) | payer OTHER ==
[2022-11-01 17:21] LABS: #Lymphocytes 2.8 thou/uL (1.20-3.40); #Neutrophils 13.8 thou/uL (1.40-6.50); %Basophils 0.1 % (0.0-1.0); %Eosinophils 0.3 % (0.0-10.0); %Monocytes 5.5 % (0.0-10.0); %Neutrophils 78.2 % (42.0-75.0); Hemoglobin 9.3 g/dL (14.0-18.0); Mean Corpuscular HGB CONC 33.3 g/dL (32.0-36.0); Mean Corpuscular Hemoglobin 30.7 pg (27.0-31.0); Mean Corpuscular Volume 92.3 fl (78.0-98.0); Mean Platelet Volume 7.6 fL (7.4-10.4); Platelet Count 495 10x3/uL (130-400); RBC Distribution Width 13.5 % (11.5-14.5); Red Blood Cell (RBC) Count 3.02 mill/uL (4.70-6.10); White Blood Cell (WBC) Count 17.6 10x3/uL (4.8-10.8)
[2022-11-01 17:43] LABS: ALT (SGPT) 42 U/L (8-55); AST (SGOT) 63 U/L (5-34); Albumin 3.4 g/dL (3.4-4.8); Alkaline Phosphatase 100 U/L (40-110); Anion Gap 16 mmol/L (10-20); BUN (Urea Nitrogen) 28 mg/dL (8.4-25.7); Bilirubin, Total 0.4 mg/dL (0.2-1.2); Calc. Creatinine Clearance 0 mL/min (70-130); Calcium 9.6 mg/dL (7.8-10.44); Carbon Dioxide 25 mmol/L (23-31); Chloride 104 mmol/L (98-107); Estimated GFR 98; Globulin 3.5 g/dL (2.4-3.5); Glucose 125 mg/dL (80-115); Lipase 13 U/L (8-78); Magnesium 2.3 mg/dL (1.6-2.6); Potassium 3.2 mmol/L (3.5-5.1); Protein, Total 6.9 g/dL (5.8-8.1); Sodium 142 mmol/L (136-145)
[2022-11-01] MEDS ORDERED: Cefepime 2 GM VIAL ONE (18:06)
[2022-11-01] MEDS ORDERED: Vancomycin 1 GM/200 ML (FROZEN) BAG ONE (18:06)
[2022-11-01] MEDS ORDERED: hydrOXYzine 25 MG TAB PER TUBE PRN (19:05)
[2022-11-01] MEDS ORDERED: Acetylcysteine 10% 100 MG/ML 30 ml Vial INH PRN (19:05)
[2022-11-01] MEDS ORDERED: Scopolamine 1.5 mg/72 hour Patch TD PRN (19:05)
[2022-11-01] MEDS ORDERED: Ondansetron PF 4 MG/2 ML Vial IVP PRN (19:09)
[2022-11-01] MEDS ORDERED: Senokot S 8.6-50 MG TAB PER TUBE PRN (19:09)
[2022-11-01] MEDS ORDERED: Ondansetron ODT 4 MG TAB PER TUBE PRN (19:14)
[2022-11-01] MEDS ORDERED: Potassium Chloride 20 MEQ TAB PER TUBE SCH (19:15)
[2022-11-01] MEDS ORDERED: Lactated Ringer's 1,000 ML IV SCH (19:15)
[2022-11-01 19:40] LABS: SARS-CoV-2 NAA Rapid Test Not Detected (NotDetected)
[2022-11-01 20:49] LABS: Lactic Acid 2.3 mmol/L (0.5-2.2)
[2022-11-01 20:53] LABS: Troponin I 0.014 ng/mL (< 0.028)
[2022-11-01] MEDS: Morphine 4 MG/ML VIAL SLOW IVP PRN (21:11)
[2022-11-01] MEDS: Atorvastatin Calcium 20 MG TAB PER TUBE SCH (21:12)
[2022-11-01] MEDS: Famotidine/PF 20 mg/2ml Vial SLOW IVP SCH (21:12)
[2022-11-01] MEDS: Metoprolol Tartrate 25 MG TAB PER TUBE SCH (21:12)
[2022-11-01 22:53] VITALS: BMI 15.1
[2022-11-01 23:27] LABS: Troponin I 0.013 ng/mL (< 0.028)
[2022-11-02] MEDS: Morphine 4 MG/ML VIAL SLOW IVP PRN ×2 (02:01→19:55)
[2022-11-02] MEDS ORDERED: Sodium Chloride 0.9% 500 ML IV SCH (04:15)
[2022-11-02] MEDS ORDERED: Electrolyte Replacement Protocol 1 EACH FS SCH (04:30)
[2022-11-02 04:50] LABS: #Basophils 0.1 thou/uL (0.0-0.2); #Eosinphils 0.3 thou/uL (0.0-0.7); #Lymphocytes 2.2 thou/uL (1.20-3.40); #Monocytes 0.7 thou/uL (0.11-0.59); #Neutrophils 10.6 thou/uL (1.40-6.50); %Basophils 0.4 % (0.0-1.0); %Eosinophils 2.2 % (0.0-10.0); %Lymphocytes 15.5 % (21.0-51.0); %Monocytes 4.9 % (0.0-10.0); Hemoglobin 8.4 g/dL (14.0-18.0); Mean Corpuscular HGB CONC 32.4 g/dL (32.0-36.0); Mean Corpuscular Hemoglobin 30.7 pg (27.0-31.0); Mean Corpuscular Volume 94.8 fl (78.0-98.0); Mean Platelet Volume 7.6 fL (7.4-10.4); Platelet Count 399 10x3/uL (130-400); RBC Distribution Width 13.8 % (11.5-14.5); Red Blood Cell (RBC) Count 2.74 mill/uL (4.70-6.10); White Blood Cell (WBC) Count 13.8 10x3/uL (4.8-10.8)
[2022-11-02 04:56] LABS: Lactic Acid 2.5 mmol/L (0.5-2.2)
[2022-11-02 04:59] LABS: Anion Gap 13 mmol/L (10-20); BUN (Urea Nitrogen) 22 mg/dL (8.4-25.7); Calc. Creatinine Clearance 86 mL/min (70-130); Calcium 8.5 mg/dL (7.8-10.44); Carbon Dioxide 22 mmol/L (23-31); Chloride 113 mmol/L (98-107); Estimated GFR 103; Glucose 85 mg/dL (80-115); Potassium 3.3 mmol/L (3.5-5.1); Sodium 145 mmol/L (136-145)
[2022-11-02] MEDS ORDERED: Potassium Chloride 20 MEQ TAB PO SCH ×2 (08:00→14:30)
[2022-11-02] MEDS ORDERED: Magnesium 2 GM/50 ML(in water) 2 GM in Premix Bag 1 BAG IVPB SCH (08:00)
[2022-11-02] MEDS: Lansoprazole 15 MG/5 ML (BATCHED)UDCUP PER TUBE SCH (08:54)
[2022-11-02] MEDS: Enoxaparin Sodium 40 MG/0.4 ML SYRINGE SC SCH (08:54)
[2022-11-02] MEDS: Acetaminophen 325 MG TAB PER TUBE PRN ×2 (08:55→14:33)
[2022-11-02] MEDS: Sertraline 100 MG TAB PER TUBE SCH (08:55)
[2022-11-02] MEDS: Metoprolol Tartrate 25 MG TAB PER TUBE SCH ×2 (08:56→21:36)
[2022-11-02] MEDS: Famotidine/PF 20 mg/2ml Vial SLOW IVP SCH ×2 (08:57→21:35)
[2022-11-02] MEDS: Cefepime 2 GM in Sodium Chloride 0.9% 100 ML IVPB SCH ×2 (09:46→21:35)
[2022-11-02 14:17] LABS: Potassium 3.5 mmol/L (3.5-5.1)
[2022-11-02] MEDS: Lactated Ringer's 1,000 ML IV SCH (15:29)
[2022-11-02] MEDS: Atorvastatin Calcium 20 MG TAB PER TUBE SCH (21:35)
[2022-11-02] MEDS: Simvastatin 10 MG TAB PER TUBE SCH (21:35)
[2022-11-02] MEDS: Minocycline HCl 50 MG CAP PER TUBE SCH (22:51)
[2022-11-03] MEDS: Lactated Ringer's 1,000 ML IV SCH ×3 (01:36→22:44)
[2022-11-03 04:53] LABS: #Eosinphils 0.3 thou/uL (0.0-0.7); #Lymphocytes 1.6 thou/uL (1.20-3.40); #Monocytes 0.7 thou/uL (0.11-0.59); #Neutrophils 8.9 thou/uL (1.40-6.50); %Basophils 0.2 % (0.0-1.0); %Eosinophils 2.4 % (0.0-10.0); %Lymphocytes 14.3 % (21.0-51.0); %Monocytes 5.7 % (0.0-10.0); %Neutrophils 77.4 % (42.0-75.0); Hemoglobin 7.4 g/dL (14.0-18.0); Mean Corpuscular HGB CONC 30.9 g/dL (32.0-36.0); Mean Corpuscular Hemoglobin 29.8 pg (27.0-31.0); Mean Corpuscular Volume 96.4 fl (78.0-98.0); Mean Platelet Volume 7.6 fL (7.4-10.4); Platelet Count 364 10x3/uL (130-400); Red Blood Cell (RBC) Count 2.47 mill/uL (4.70-6.10); White Blood Cell (WBC) Count 11.5 10x3/uL (4.8-10.8)
[2022-11-03 05:14] LABS: Anion Gap 11 mmol/L (10-20); BUN (Urea Nitrogen) 25 mg/dL (8.4-25.7); Calc. Creatinine Clearance 101 mL/min (70-130); Calcium 7.9 mg/dL (7.8-10.44); Carbon Dioxide 25 mmol/L (23-31); Chloride 108 mmol/L (98-107); Estimated GFR 108; Glucose 95 mg/dL (80-115); Magnesium 1.8 mg/dL (1.6-2.6); Potassium 4.2 mmol/L (3.5-5.1); Sodium 140 mmol/L (136-145)
[2022-11-03] MEDS ORDERED: Magnesium 2 GM/50 ML(in water) 2 GM in Premix Bag 1 BAG IVPB SCH (08:00)
[2022-11-03] MEDS: Enoxaparin Sodium 40 MG/0.4 ML SYRINGE SC SCH ×2 (08:50→13:47)
[2022-11-03] MEDS: Cefepime 2 GM in Sodium Chloride 0.9% 100 ML IVPB SCH ×2 (08:50→20:59)
[2022-11-03] MEDS: Minocycline HCl 50 MG CAP PER TUBE SCH ×2 (08:50→20:58)
[2022-11-03] MEDS: Lansoprazole 15 MG/5 ML (BATCHED)UDCUP PER TUBE SCH (08:51)
[2022-11-03] MEDS: Clopidogrel Bisulfate 75 MG TAB PER TUBE SCH (08:52)
[2022-11-03] MEDS: Metoprolol Tartrate 25 MG TAB PER TUBE SCH ×2 (08:52→20:58)
[2022-11-03] MEDS: Famotidine/PF 20 mg/2ml Vial SLOW IVP SCH ×2 (08:55→20:58)
[2022-11-03] MEDS: Sertraline 100 MG TAB PER TUBE SCH (08:56)
[2022-11-03] MEDS: traMADol HCl 50 MG TAB PO PRN ×2 (14:00→21:11)
[2022-11-03] MEDS: Simvastatin 10 MG TAB PER TUBE SCH (20:53)
[2022-11-03] MEDS: Atorvastatin Calcium 20 MG TAB PER TUBE SCH (20:53)
[2022-11-04 04:53] LABS: #Eosinphils 0.2 thou/uL (0.0-0.7); #Lymphocytes 1.7 thou/uL (1.20-3.40); #Monocytes 0.7 thou/uL (0.11-0.59); #Neutrophils 8.9 thou/uL (1.40-6.50); %Basophils 0.3 % (0.0-1.0); %Eosinophils 2.1 % (0.0-10.0); %Lymphocytes 14.7 % (21.0-51.0); %Monocytes 5.9 % (0.0-10.0); Hemoglobin 8.2 g/dL (14.0-18.0); Mean Corpuscular HGB CONC 33.2 g/dL (32.0-36.0); Mean Corpuscular Hemoglobin 30.9 pg (27.0-31.0); Mean Corpuscular Volume 93.1 fl (78.0-98.0); Mean Platelet Volume 7.4 fL (7.4-10.4); Platelet Count 358 10x3/uL (130-400); RBC Distribution Width 14.1 % (11.5-14.5); Red Blood Cell (RBC) Count 2.65 mill/uL (4.70-6.10); White Blood Cell (WBC) Count 11.5 10x3/uL (4.8-10.8)
[2022-11-04 05:05] LABS: ALT (SGPT) 44 U/L (8-55); AST (SGOT) 33 U/L (5-34); Albumin 2.5 g/dL (3.4-4.8); Alkaline Phosphatase 202 U/L (40-110); Anion Gap 10 mmol/L (10-20); BUN (Urea Nitrogen) 20 mg/dL (8.4-25.7); Bilirubin, Total 0.4 mg/dL (0.2-1.2); Calc. Creatinine Clearance 112 mL/min (70-130); Carbon Dioxide 24 mmol/L (23-31); Chloride 104 mmol/L (98-107); Estimated GFR 112; Globulin 2.7 g/dL (2.4-3.5); Glucose 113 mg/dL (80-115); Magnesium 1.6 mg/dL (1.6-2.6); Potassium 3.6 mmol/L (3.5-5.1); Protein, Total 5.2 g/dL (5.8-8.1); Sodium 134 mmol/L (136-145)
[2022-11-04] MEDS ORDERED: Magnesium 2 GM/50 ML(in water) 2 GM in Premix Bag 1 BAG IVPB SCH (06:45)
[2022-11-04] MEDS: Lactated Ringer's 1,000 ML IV SCH ×2 (08:48→21:29)
[2022-11-04] MEDS: Cefepime 2 GM in Sodium Chloride 0.9% 100 ML IVPB SCH ×2 (10:24→21:27)
[2022-11-04] MEDS: Famotidine/PF 20 mg/2ml Vial SLOW IVP SCH ×2 (10:25→21:25)
[2022-11-04] MEDS: Enoxaparin Sodium 40 MG/0.4 ML SYRINGE SC SCH ×2 (10:25→10:46)
[2022-11-04] MEDS: Metoprolol Tartrate 25 MG TAB PER TUBE SCH ×2 (10:26→21:27)
[2022-11-04] MEDS: Lansoprazole 15 MG/5 ML (BATCHED)UDCUP PER TUBE SCH (10:26)
[2022-11-04] MEDS: Minocycline HCl 50 MG CAP PER TUBE SCH ×2 (10:26→21:27)
[2022-11-04] MEDS: Sertraline 100 MG TAB PER TUBE SCH (10:28)
[2022-11-04] MEDS: traMADol HCl 50 MG TAB PO PRN ×2 (10:30→21:26)
[2022-11-04] MEDS: Clopidogrel Bisulfate 75 MG TAB PER TUBE SCH (10:30)
[2022-11-04] MEDS: Simvastatin 10 MG TAB PER TUBE SCH (21:29)
[2022-11-04] MEDS: Atorvastatin Calcium 20 MG TAB PER TUBE SCH (21:29)
[2022-11-05] MEDS: Morphine 4 MG/ML VIAL SLOW IVP PRN ×3 (03:59→23:44)
[2022-11-05 04:59] LABS: #Eosinphils 0.2 thou/uL (0.0-0.7); #Lymphocytes 1.9 thou/uL (1.20-3.40); #Monocytes 0.7 thou/uL (0.11-0.59); #Neutrophils 7.8 thou/uL (1.40-6.50); %Basophils 0.3 % (0.0-1.0); %Eosinophils 1.9 % (0.0-10.0); %Lymphocytes 17.8 % (21.0-51.0); Hemoglobin 7.7 g/dL (14.0-18.0); Mean Corpuscular HGB CONC 31.5 g/dL (32.0-36.0); Mean Corpuscular Hemoglobin 29.8 pg (27.0-31.0); Mean Corpuscular Volume 94.6 fl (78.0-98.0); Mean Platelet Volume 7.6 fL (7.4-10.4); Platelet Count 365 10x3/uL (130-400); RBC Distribution Width 14.1 % (11.5-14.5); Red Blood Cell (RBC) Count 2.57 mill/uL (4.70-6.10); White Blood Cell (WBC) Count 10.7 10x3/uL (4.8-10.8)
[2022-11-05 05:20] LABS: ALT (SGPT) 24 U/L (8-55); AST (SGOT) 15 U/L (5-34); Albumin 2.3 g/dL (3.4-4.8); Alkaline Phosphatase 143 U/L (40-110); Anion Gap 9 mmol/L (10-20); BUN (Urea Nitrogen) 16 mg/dL (8.4-25.7); Bilirubin, Total 0.3 mg/dL (0.2-1.2); Calc. Creatinine Clearance 117 mL/min (70-130); Calcium 7.7 mg/dL (7.8-10.44); Carbon Dioxide 26 mmol/L (23-31); Chloride 101 mmol/L (98-107); Estimated GFR 113; Globulin 2.6 g/dL (2.4-3.5); Glucose 91 mg/dL (80-115); Magnesium 1.8 mg/dL (1.6-2.6); Potassium 3.6 mmol/L (3.5-5.1); Protein, Total 4.9 g/dL (5.8-8.1); Sodium 132 mmol/L (136-145)
[2022-11-05] MEDS: Lactated Ringer's 1,000 ML IV SCH ×2 (06:13→16:55)
[2022-11-05] MEDS ORDERED: Magnesium 2 GM/50 ML(in water) 2 GM in Premix Bag 1 BAG IVPB SCH (08:00)
[2022-11-05] MEDS: Cefepime 2 GM in Sodium Chloride 0.9% 100 ML IVPB SCH ×2 (10:35→21:10)
[2022-11-05] MEDS: Famotidine/PF 20 mg/2ml Vial SLOW IVP SCH ×2 (10:36→21:11)
[2022-11-05] MEDS: Clopidogrel Bisulfate 75 MG TAB PER TUBE SCH (10:37)
[2022-11-05] MEDS: Lansoprazole 15 MG/5 ML (BATCHED)UDCUP PER TUBE SCH (10:37)
[2022-11-05] MEDS: Minocycline HCl 50 MG CAP PER TUBE SCH ×2 (10:37→21:09)
[2022-11-05] MEDS: traMADol HCl 50 MG TAB PO PRN (10:38)
[2022-11-05] MEDS: Sertraline 100 MG TAB PER TUBE SCH (10:38)
[2022-11-05] MEDS: Metoprolol Tartrate 25 MG TAB PER TUBE SCH ×2 (10:39→21:11)
[2022-11-05] MEDS: Enoxaparin Sodium 40 MG/0.4 ML SYRINGE SC SCH (10:40)
[2022-11-05] MEDS: Atorvastatin Calcium 20 MG TAB PER TUBE SCH (21:11)
[2022-11-05] MEDS: Simvastatin 10 MG TAB PER TUBE SCH (21:11)
[2022-11-06] MEDS: Morphine 4 MG/ML VIAL SLOW IVP PRN ×4 (03:32→21:26)
[2022-11-06] MEDS: Lactated Ringer's 1,000 ML IV SCH (03:33)
[2022-11-06 04:49] LABS: #Eosinphils 0.2 thou/uL (0.0-0.7); #Lymphocytes 1.4 thou/uL (1.20-3.40); #Monocytes 0.7 thou/uL (0.11-0.59); #Neutrophils 6.9 thou/uL (1.40-6.50); %Basophils 0.3 % (0.0-1.0); %Eosinophils 2.3 % (0.0-10.0); %Neutrophils 74.5 % (42.0-75.0); Hemoglobin 7.4 g/dL (14.0-18.0); Mean Corpuscular HGB CONC 32.4 g/dL (32.0-36.0); Mean Corpuscular Hemoglobin 30.6 pg (27.0-31.0); Mean Corpuscular Volume 94.7 fl (78.0-98.0); Mean Platelet Volume 7.3 fL (7.4-10.4); Platelet Count 328 10x3/uL (130-400); RBC Distribution Width 13.9 % (11.5-14.5); Red Blood Cell (RBC) Count 2.41 mill/uL (4.70-6.10); White Blood Cell (WBC) Count 9.3 10x3/uL (4.8-10.8)
[2022-11-06 05:07] LABS: ALT (SGPT) 14 U/L (8-55); AST (SGOT) 13 U/L (5-34); Albumin 2.3 g/dL (3.4-4.8); Alkaline Phosphatase 120 U/L (40-110); Anion Gap 8 mmol/L (10-20); BUN (Urea Nitrogen) 17 mg/dL (8.4-25.7); Bilirubin, Total 0.2 mg/dL (0.2-1.2); Calc. Creatinine Clearance 119 mL/min (70-130); Calcium 7.6 mg/dL (7.8-10.44); Carbon Dioxide 29 mmol/L (23-31); Chloride 100 mmol/L (98-107); Estimated GFR 114; Globulin 2.4 g/dL (2.4-3.5); Glucose 107 mg/dL (80-115); Magnesium 1.7 mg/dL (1.6-2.6); Potassium 3.7 mmol/L (3.5-5.1); Protein, Total 4.7 g/dL (5.8-8.1); Sodium 133 mmol/L (136-145)
[2022-11-06] MEDS ORDERED: Magnesium 2 GM/50 ML(in water) 2 GM in Premix Bag 1 BAG IVPB SCH (08:00)
[2022-11-06] MEDS: Minocycline HCl 50 MG CAP PER TUBE SCH ×2 (09:39→21:54)
[2022-11-06] MEDS: Metoprolol Tartrate 25 MG TAB PER TUBE SCH ×2 (09:39→21:29)
[2022-11-06] MEDS: Lansoprazole 15 MG/5 ML (BATCHED)UDCUP PER TUBE SCH (09:39)
[2022-11-06] MEDS: Sertraline 100 MG TAB PER TUBE SCH (09:40)
[2022-11-06] MEDS: Cefepime 2 GM in Sodium Chloride 0.9% 100 ML IVPB SCH (09:40)
[2022-11-06] MEDS: Clopidogrel Bisulfate 75 MG TAB PER TUBE SCH (09:40)
[2022-11-06] MEDS: Enoxaparin Sodium 40 MG/0.4 ML SYRINGE SC SCH (09:41)
[2022-11-06] MEDS: Famotidine/PF 20 mg/2ml Vial SLOW IVP SCH ×2 (09:41→22:20)
[2022-11-06] MEDS: Simvastatin 10 MG TAB PER TUBE SCH (22:19)
[2022-11-06] MEDS: Atorvastatin Calcium 20 MG TAB PER TUBE SCH (22:20)
[2022-11-07] MEDS: Morphine 4 MG/ML VIAL SLOW IVP PRN ×4 (01:12→21:44)
[2022-11-07 06:20] LABS: #Eosinphils 0.2 thou/uL (0.0-0.7); #Lymphocytes 1.8 thou/uL (1.20-3.40); #Monocytes 0.8 thou/uL (0.11-0.59); #Neutrophils 7.2 thou/uL (1.40-6.50); %Basophils 0.2 % (0.0-1.0); %Eosinophils 1.9 % (0.0-10.0); %Lymphocytes 17.6 % (21.0-51.0); %Monocytes 8.2 % (0.0-10.0); %Neutrophils 72.1 % (42.0-75.0); Hemoglobin 7.3 g/dL (14.0-18.0); Mean Corpuscular Hemoglobin 29.4 pg (27.0-31.0); Mean Corpuscular Volume 94.8 fl (78.0-98.0); Mean Platelet Volume 7.4 fL (7.4-10.4); Platelet Count 359 10x3/uL (130-400); RBC Distribution Width 13.8 % (11.5-14.5); Red Blood Cell (RBC) Count 2.47 mill/uL (4.70-6.10)
[2022-11-07 06:43] LABS: ALT (SGPT) 13 U/L (8-55); AST (SGOT) 13 U/L (5-34); Albumin 2.5 g/dL (3.4-4.8); Alkaline Phosphatase 109 U/L (40-110); Anion Gap 8 mmol/L (10-20); BUN (Urea Nitrogen) 15 mg/dL (8.4-25.7); Bilirubin, Total 0.3 mg/dL (0.2-1.2); Calc. Creatinine Clearance 117 mL/min (70-130); Calcium 7.9 mg/dL (7.8-10.44); Carbon Dioxide 27 mmol/L (23-31); Chloride 101 mmol/L (98-107); Estimated GFR 113; Globulin 2.8 g/dL (2.4-3.5); Glucose 90 mg/dL (80-115); Magnesium 1.7 mg/dL (1.6-2.6); Potassium 3.8 mmol/L (3.5-5.1); Protein, Total 5.3 g/dL (5.8-8.1); Sodium 132 mmol/L (136-145)
[2022-11-07] MEDS ORDERED: Magnesium 2 GM/50 ML(in water) 2 GM in Premix Bag 1 BAG IVPB SCH (08:00)
[2022-11-07] MEDS: Clopidogrel Bisulfate 75 MG TAB PER TUBE SCH (08:39)
[2022-11-07] MEDS: Sertraline 100 MG TAB PER TUBE SCH (08:39)
[2022-11-07] MEDS: Minocycline HCl 50 MG CAP PER TUBE SCH ×2 (08:39→21:39)
[2022-11-07] MEDS: Enoxaparin Sodium 40 MG/0.4 ML SYRINGE SC SCH (08:39)
[2022-11-07] MEDS: Metoprolol Tartrate 25 MG TAB PER TUBE SCH ×2 (08:57→21:40)
[2022-11-07] MEDS: Lansoprazole 15 MG/5 ML (BATCHED)UDCUP PER TUBE SCH (09:17)
[2022-11-07] MEDS: Simvastatin 10 MG TAB PER TUBE SCH (22:21)
[2022-11-08] MEDS: Morphine 4 MG/ML VIAL SLOW IVP PRN ×3 (05:30→13:53)
[2022-11-08 07:17] LABS: #Eosinphils 0.1 thou/uL (0.0-0.7); #Lymphocytes 1.8 thou/uL (1.20-3.40); #Neutrophils 8.2 thou/uL (1.40-6.50); %Basophils 0.3 % (0.0-1.0); %Eosinophils 1.3 % (0.0-10.0); %Lymphocytes 16.3 % (21.0-51.0); %Monocytes 8.6 % (0.0-10.0); %Neutrophils 73.5 % (42.0-75.0); Hemoglobin 7.1 g/dL (14.0-18.0); Mean Corpuscular HGB CONC 32.2 g/dL (32.0-36.0); Mean Corpuscular Hemoglobin 30.2 pg (27.0-31.0); Mean Corpuscular Volume 93.8 fl (78.0-98.0); Mean Platelet Volume 7.6 fL (7.4-10.4); Platelet Count 345 10x3/uL (130-400); Red Blood Cell (RBC) Count 2.34 mill/uL (4.70-6.10); White Blood Cell (WBC) Count 11.1 10x3/uL (4.8-10.8)
[2022-11-08] MEDS: Metoprolol Tartrate 25 MG TAB PER TUBE SCH ×2 (09:38→20:32)
[2022-11-08] MEDS: Clopidogrel Bisulfate 75 MG TAB PER TUBE SCH (09:46)
[2022-11-08] MEDS: Sertraline 100 MG TAB PER TUBE SCH (09:46)
[2022-11-08] MEDS: Minocycline HCl 50 MG CAP PER TUBE SCH ×2 (09:58→21:00)
[2022-11-08] MEDS: Lansoprazole 15 MG/5 ML (BATCHED)UDCUP PER TUBE SCH (09:58)
[2022-11-08] MEDS: Enoxaparin Sodium 40 MG/0.4 ML SYRINGE SC SCH (09:59)
[2022-11-08] MEDS: traMADol HCl 50 MG TAB PO PRN (21:02)
[2022-11-08] MEDS: Simvastatin 10 MG TAB PER TUBE SCH (21:02)
[2022-11-09] MEDS: Morphine 4 MG/ML VIAL SLOW IVP PRN ×2 (00:58→11:05)
[2022-11-09] MEDS: Enoxaparin Sodium 40 MG/0.4 ML SYRINGE SC SCH (09:12)
[2022-11-09] MEDS: Minocycline HCl 50 MG CAP PER TUBE SCH ×2 (09:12→21:47)
[2022-11-09] MEDS: Clopidogrel Bisulfate 75 MG TAB PER TUBE SCH (09:12)
[2022-11-09] MEDS: Sertraline 100 MG TAB PER TUBE SCH (09:13)
[2022-11-09] MEDS: Metoprolol Tartrate 25 MG TAB PER TUBE SCH ×2 (09:13→21:37)
[2022-11-09] MEDS: Lansoprazole 15 MG/5 ML (BATCHED)UDCUP PER TUBE SCH (09:14)
[2022-11-09] MEDS: traMADol HCl 50 MG TAB PO PRN ×2 (16:35→23:04)
[2022-11-09] MEDS: Simvastatin 10 MG TAB PER TUBE SCH (21:47)
[2022-11-09] MEDS: Acetaminophen 325 MG TAB PER TUBE PRN (23:06)
[2022-11-10] MEDS: Morphine 4 MG/ML VIAL SLOW IVP PRN (08:15)
[2022-11-10] MEDS: Minocycline HCl 50 MG CAP PER TUBE SCH ×2 (09:37→21:15)
[2022-11-10] MEDS: Lansoprazole 15 MG/5 ML (BATCHED)UDCUP PER TUBE SCH (09:37)
[2022-11-10] MEDS: Sertraline 100 MG TAB PER TUBE SCH (09:38)
[2022-11-10] MEDS: Enoxaparin Sodium 40 MG/0.4 ML SYRINGE SC SCH (09:38)
[2022-11-10] MEDS: Clopidogrel Bisulfate 75 MG TAB PER TUBE SCH (09:39)
[2022-11-10] MEDS: Metoprolol Tartrate 25 MG TAB PER TUBE SCH ×2 (09:39→21:13)
[2022-11-10] MEDS: Acetaminophen 325 MG TAB PER TUBE PRN (13:02)
[2022-11-10] MEDS: traMADol HCl 50 MG TAB PO PRN (13:02)
[2022-11-10] MEDS: Simvastatin 10 MG TAB PER TUBE SCH (21:15)
[2022-11-11] MEDS: traMADol HCl 50 MG TAB PO PRN ×4 (00:07→20:35)
[2022-11-11] MEDS: Acetaminophen 325 MG TAB PER TUBE PRN ×4 (00:08→20:30)
[2022-11-11] MEDS: Sertraline 100 MG TAB PER TUBE SCH (10:01)
[2022-11-11] MEDS: Metoprolol Tartrate 25 MG TAB PER TUBE SCH ×2 (10:02→20:35)
[2022-11-11] MEDS: Minocycline HCl 50 MG CAP PER TUBE SCH ×2 (10:02→20:35)
[2022-11-11] MEDS: Clopidogrel Bisulfate 75 MG TAB PER TUBE SCH (10:02)
[2022-11-11] MEDS: Enoxaparin Sodium 40 MG/0.4 ML SYRINGE SC SCH (10:03)
[2022-11-11] MEDS: Lansoprazole 15 MG/5 ML (BATCHED)UDCUP PER TUBE SCH (10:03)
[2022-11-11] MEDS: Simvastatin 10 MG TAB PER TUBE SCH (20:35)
[2022-11-12] MEDS: traMADol HCl 50 MG TAB PO PRN ×2 (04:15→10:55)
[2022-11-12] MEDS: Acetaminophen 325 MG TAB PER TUBE PRN ×2 (04:16→10:55)
[2022-11-12 08:01] VITALS: BP 101/62; TEMP 98.2
[2022-11-12] MEDS: Metoprolol Tartrate 25 MG TAB PER TUBE SCH (09:09)
[2022-11-12] MEDS: Enoxaparin Sodium 40 MG/0.4 ML SYRINGE SC SCH (09:09)
[2022-11-12] MEDS: Clopidogrel Bisulfate 75 MG TAB PER TUBE SCH (09:09)
[2022-11-12] MEDS: Lansoprazole 15 MG/5 ML (BATCHED)UDCUP PER TUBE SCH (09:09)
[2022-11-12] MEDS: Minocycline HCl 50 MG CAP PER TUBE SCH (09:10)
[2022-11-12] MEDS: Sertraline 100 MG TAB PER TUBE SCH (09:10)
== END 2022-11-12 16:57 | DRG 193 ==
LOC: ERS 16:05 → 2NO 18:17 → T4-B 11-06 20:28
PROVIDERS: ADMIT Student in an Organized Health Care Education/Training Program; ATTEND Internal Medicine
DX: J18.9 Pneumonia, unspecified organism (principal); E43 Unspecified severe protein-calorie malnutrition; Z68.1 Body mass index [BMI] 19.9 or less, adult; C78.00 Secondary malignant neoplasm of unspecified lung; J44.0 Chronic obstructive pulmonary disease with (acute) lower respiratory infection; E87.1 Hypo-osmolality and hyponatremia; R64 Cachexia; Z20.822 Contact with and (suspected) exposure to COVID-19; C14.0 Malignant neoplasm of pharynx, unspecified; F41.9 Anxiety disorder, unspecified; F32.A Depression, unspecified; I10 Essential (primary) hypertension; D64.9 Anemia, unspecified; E87.6 Hypokalemia; E88.09 Other disorders of plasma-protein metabolism, not elsewhere classified; Z87.891 Personal history of nicotine dependence; Z79.899 Other long term (current) drug therapy; Z79.82 Long term (current) use of aspirin; Z79.51 Long term (current) use of inhaled steroids; Z93.0 Tracheostomy status
CPT/HCPCS: 36415; 71045; 80048; 80053; 83605; 83690; 83735; 83880; 84484; 85025; 87040; 87811; 93005; 94640; 96374; 96375; 97139; J0692; J1642; J1650; J1956; J2270; J2405; J3370-JW; J3475; J3490; J7030; J7120; S0028